=== PATIENT | male | born 1950 | race Caucasian/White ===

== ENCOUNTER 2020-09-07 16:42 | Outpatient (RCR) | payer MEDICARE, SELFPAY | END 2020-11-08 23:59 | LOC: IMMUN 16:42 | PROVIDERS: Visit Provider Family Medicine | DX: Z23 Encounter for immunization (principal) | CPT/HCPCS: 0001A; 0002A; 91300 ==

== ENCOUNTER 2023-01-25 11:04 | Emergency (ER) | payer MEDICARE, SELFPAY ==
[2023-01-25 11:09] VITALS: BP 154/99; PULSE 97; RESP 18; TEMP 35.6; O2SAT 92; BMI 28.5
--- NOTE | 2023-01-25 11:34 | EX.ED.DYSGE1 ---
HPI <JN Sagastume - Last Filed: 01/25/23 17:14> History of Present Illness Chief Complaint: Suicidal Narrative Narrative: Patient is a 72-year-old male with history of RA, CAD, history of CVA, history of depression who presents into the emergency department with complaints of increased exacerbation of depression as well as concern for suicidal ideation. Patient states over the last several weeks, he has been having difficulty performing daily activities. He states his head is in a complete fog. He states that he is so depressed he has never get out of bed. He does have multiple thoughts that he does not want to wake up. He states that he wants to work hard in the yard, and have a heart attack and right then. He has never tried to hurt himself. He does have history of depression, last time he was treated was 1 year ago with medication. He states he is having difficulty keeping a psychiatric provider. Patient states that he needs to have treatment because he is not doing well at home. PFSH <JN Sagastume - Last Filed: 01/25/23 17:14> PFSH Allergy/AdvReac Type Severity Reaction Status Date / Time No Known Allergies Allergy Verified 01/25/23 11:13 Social History Smoking Status: Current some day smoker tobacco type: cigarettes ROS <JN Sagastume - Last Filed: 01/25/23 17:14> ROS ED ROS Narrative Constitutional: Negative for fever, chills, weight loss. Positive generalized weakness Eyes: Negative for vision loss, vision change, double vision ENT: Negative for any sore throat, ear pain, congestion Cardiovascular: Negative for any chest pain, tightness, palpitations Respiratory: Negative for any cough, sputum production, hemoptysis, dyspnea, dyspnea on exertion, orthopnea Gastrointestinal: Negative for any abdominal pain, nausea, vomiting, diarrhea, constipation, blood in stool, blood in vomit : Negative for any urinary frequency, dysuria, retention, blood in urine Muscle skeletal: Negative for any muscle joint pain, stiffness, neck pain, back pain. Positive for myalgias, arthralgias. Neurological: Negative for any headache, syncope, numbness or tingling, dizziness Skin: Negative for any rashes, lumps, itching, abrasions, lacerations Psychiatric: Negative for any anxiety, stress, homicidal ideation. Positive for depression, suicidal ideation Hematologic: Negative for any easy bruising, excessive bruising, easy bleeding Allergies: Negative for any eczema, hives, rash EXAM <JN Sagastume - Last Filed: 01/25/23 17:14> Physical Exam Narrative Exam Narrative: Vital signs reviewed. Patient was assessed by crisis, they recommend the patient be transferred to a psychiatric facility. HEET: Head normocephalic atraumatic, TMs clear bilaterally. Posterior pharynx is clear, moist mucous membranes. Nares clear bilaterally. Neck: Supple with no lymphadenopathy or tenderness. No signs of meningismus, negative jolt sign. Cardiac: Regular rate and rhythm no murmurs gallops or rubs, equal peripheral pulses bilaterally. Respiratory: Lungs clear to auscultation bilaterally. No chest tenderness. Abdomen: Soft, nontender, nondistended. No abdominal bruit or pulsatile masses. No hepatosplenomegaly Extremities: No peripheral edema, no signs of gross trauma or deformity. Active full range of motion of all extremities. Neuro: Cranial nerves II through XII intact, no focal neurological deficits. Skin: Clean dry and intact with no rash, purpura, petechiae, vesicles or pustules. Backs/flank: No CVA tenderness, no midline spinal tenderness, no deformity. Psych: Patient does appear to be depressed. Patient has no obvious plan of suicidal ideation however does speak about dying. He states he does not like to have these thoughts. Const Vital Signs: 01/25/23 11:09 01/25/23 13:09 Temperature 96.1 F L Temperature Source Temporal Pulse Rate 97 64 Respiratory Rate 18 14 Blood Pressure 154/99 H 142/78 H Blood Pressure Mean 117 99 Pulse Ox 92 98 Oxygen Delivery Method Room Air Room Air Positive well nourished and well developed General Appearance ED: well developed <Dr. Timur Richmond MD - Last Filed: 01/25/23 17:26> Physical Exam Const Vital Signs: 01/25/23 11:09 01/25/23 13:09 Temperature 96.1 F L Temperature Source Temporal Pulse Rate 97 64 Respiratory Rate 18 14 Blood Pressure 154/99 H 142/78 H Blood Pressure Mean 117 99 Pulse Ox 92 98 Oxygen Delivery Method Room Air Room Air MDM <JN Sagastume - Last Filed: 01/25/23 17:14> MDM Lab Data Labs: Laboratory Results - last 24 hr 01/25/23 01/25/23 01/25/23 11:45 12:14 12:51 WBC 6.1 RBC 5.68 Hgb 17.2 H Hct 51.1 MCV 90.0 MCH 30.3 MCHC 33.7 RDW Std Deviation 40.7 RDW Coeff of Vinnie 12.4 Plt Count 151 MPV 8.7 Immature Gran % (Auto) 0.200 Neut % (Auto) 78.2 H Lymph % (Auto) 15.8 L [place] % (Auto) 4.1 Eos % (Auto) 1.2 Baso % (Auto) 0.5 Absolute Neuts (auto) 4.8 Absolute Lymphs (auto) 0.96 Nucleated RBC % 0 Sodium 139 Potassium 3.8 Chloride 106 Carbon Dioxide 27.0 Anion Gap 6 BUN 17 Creatinine 0.99 Estim Creat Clear Calc 80.61 Est GFR (MDRD) Af Amer 95 Est GFR (MDRD) Non-Af 79 BUN/Creatinine Ratio 17.2 Glucose 105 Calcium 9.5 Total Bilirubin 1.10 H AST 28 ALT 33 Alkaline Phosphatase 76 Total Protein 7.8 Albumin 4.1 Globulin 3.7 Albumin/Globulin Ratio 1.1 Lipase 36 Urine Color Yellow Urine Clarity Cloudy Urine pH 6.5 Ur Specific Shel[place] 1.020 Urine Protein 100 H Urine Glucose (UA) Normal Urine Ketones 50 H Urine Occult Blood 25 H Urine Nitrite Negative Urine Bilirubin Negative Urine Urobilinogen 1 H Ur Leukocyte Esterase 500 H Urine RBC 0 SEEN Urine WBC 5-10 SEEN Ur Squamous Epith Cells 0 SEEN Urine Bacteria 4+ Urine Mucus 0 SEEN Urine Opiates Screen NEGATIVE Urine Methadone Screen NEGATIVE Ur Barbiturates Screen NEGATIVE Ur Phencyclidine Scrn NEGATIVE Ur Amphetamines Screen NEGATIVE MDMA (Ecstasy) Screen NEGATIVE U Benzodiazepines Scrn NEGATIVE Urine Cocaine Screen NEGATIVE U Cannabinoids Screen NEGATIVE Ur Drug Screen Comment Ethyl Alcohol < 3.0 Treatment and Re-Evaluation :: Patient is in no obvious distress, vital signs are stable. Patient presents to the emergency department for concerns of suicidal ideation, depression, inability to perform daily activities. Patient has signs and symptoms of depression, patient states he does want to however he has no obvious plan. The patient will be medically cleared, CMP and lipase were completed secondary to his history of gallbladder issues. Patient will need to be transferred. Patient be medically cleared here. Patient be placed in a gown, sitter. Patient's urinalysis did show 4+ bacteria 500 leukocytes, 25 occult blood, however patient is having no urinary symptoms. This to be sent for culture. Patient remains safe, she was able to speak with social work. Patient's CBC was unremarkable, chemistries were unremarkable, urine drug screen was negative, patient does not intoxicated. Patient did speak with social work, patient is currently waiting for a place in a bed at a psychiatric facility. Patient is pink slipped secondary to the patient stating that he wanted to leave. Patient is pink slipped for complaints concern for suicidal ideation <Dr. Timur Richmond MD - Last Filed: 01/25/23 17:26> [facility] Lab Data Attestation: I reviewed the patient's lab results. Labs: Laboratory Results - last 24 hr 01/25/23 01/25/23 01/25/23 11:45 12:14 12:51 WBC 6.1 RBC 5.68 Hgb 17.2 H Hct 51.1 MCV 90.0 MCH 30.3 MCHC 33.7 RDW Std Deviation 40.7 RDW Coeff of Vinnie 12.4 Plt Count 151 MPV 8.7 Immature Gran % (Auto) 0.200 Neut % (Auto) 78.2 H Lymph % (Auto) 15.8 L [place] % (Auto) 4.1 Eos % (Auto) 1.2 Baso % (Auto) 0.5 Absolute Neuts (auto) 4.8 Absolute Lymphs (auto) 0.96 Nucleated RBC % 0 Sodium 139 Potassium 3.8 Chloride 106 Carbon Dioxide 27.0 Anion Gap 6 BUN 17 Creatinine 0.99 Estim Creat Clear Calc 80.61 Est GFR (MDRD) Af Amer 95 Est GFR (MDRD) Non-Af 79 BUN/Creatinine Ratio 17.2 Glucose 105 Calcium 9.5 Total Bilirubin 1.10 H AST 28 ALT 33 Alkaline Phosphatase 76 Total Protein 7.8 Albumin 4.1 Globulin 3.7 Albumin/Globulin Ratio 1.1 Lipase 36 Urine Color Yellow Urine Clarity Cloudy Urine pH 6.5 Ur Specific [place] 1.020 Urine Protein 100 H Urine Glucose (UA) Normal Urine Ketones 50 H Urine Occult Blood 25 H Urine Nitrite Negative Urine Bilirubin Negative Urine Urobilinogen 1 H Ur Leukocyte Esterase 500 H Urine RBC 0 SEEN Urine WBC 5-10 SEEN Ur Squamous Epith Cells 0 SEEN Urine Bacteria 4+ Urine Mucus 0 SEEN Urine Opiates Screen NEGATIVE Urine Methadone Screen NEGATIVE Ur Barbiturates Screen NEGATIVE Ur Phencyclidine Scrn NEGATIVE Ur Amphetamines Screen NEGATIVE MDMA (Ecstasy) Screen NEGATIVE U Benzodiazepines Scrn NEGATIVE Urine Cocaine Screen NEGATIVE U Cannabinoids Screen NEGATIVE Ur Drug Screen Comment Ethyl Alcohol < 3.0 Rhythm Strip Rhythm Strip: Sinus Rhythm Rate: 95 Ectopy: None EKG Initial EKG: Attestation: I personally reviewed and interpreted this EKG as follows: Interpretation: Sinus Rhythm and No Acute Injury Pattern Comments: leftward axis Prior EKG tracings: not available for review Prior: No Prior Treatment and Re-Evaluation Comments:: I have personally performed a face to face assessment of the patient and have reviewed the TIFFANIE Note. I performed a substantive portion of the visit including all aspects of the following. My martins findings include: History is radial patient depressed and having thoughts of suicide, Patient requiring inpatient care and seen here for medical clearance. He has been having biliary colic he states he has it every day especially after meals, and was scheduled next week for elective surgery which has been canceled. He is not in a lot of pain right now. Exam is keenly alert and oriented x3, cooperative and appropriate. Ambulatory. Abdomen soft mild tenderness right lower quadrant otherwise benign abdomen no guarding or rebound negative [place]. No jaundice. Medical Decison Making Labs are obtained he does not have a leukocytosis or elevated liver enzymes. His total bilirubin is 1.1 which is just barely out of the normal range there is no old for comparison but this does not indicate acute choledocholithiasis. Patient is medically cleared, clinically does not have acute cholecystitis, will refer to mental health. Other additions or changes: [None] Discharge Plan Triage Chief Complaint: Suicidal ED Midlevel Provider: Jonathan Cheney ED Provider: Timur Richmond Dx/Rx/DC Orders Clinical Impression: Depression with suicidal ideation, Biliary colic symptom Primary Care Provider: Care Physician,No Primary Referrals: NOT,DEFINED [Non-Staff] - Disposition Disposition: Psychiatric Hospital or Unit
--- NOTE | 2023-01-25 11:42 | NURSING ---
NO OLD EKGS
[2023-01-25 12:21] LABS: Absolute Lymphocyte Count 0.96 X10^3/uL (0.83-4.51); Absolute Neutrophil Count 4.8 X10^3/uL (2.0-7.7); Basophil# 0.03 X10^3/uL; Basophil% 0.5 % (0-1); Eosinophil# 0.07 X10^3/uL; Eosinophils% 1.2 % (0-5); Hematocrit 51.1 % (40-54); Hemoglobin 17.2 g/dL (13.0-16.5); Lymphocyte # 0.96 X10^3/ul (0.83-4.51); Lymphocyte % 15.8 % (19-41); Mean Corp Hgb Conc 33.7 g/dL (32-36); Mean Corpuscular Hgb 30.3 pg (27.0-32.0); Mean Platelet Vol. 8.7 fl (6.2-12.0); Monocyte# 0.25 X10^3/uL; Monocyte% 4.1 % (0-10); NRBC Flagged by Analyzer 0 % (0-5); Neutrophil # 4.75 X10^3/uL (2.7-7.7); Neutrophil % 78.2 % (47-70); Platelet Count 151 K/mm3 (150-450); RBC Distribution Width CV 12.4 % (11.6-14.6); RBC Distribution Width SD 40.7 fl (35.1-43.9); Red Blood Count 5.68 M/mm3 (4.6-6.2); White Blood Count 6.1 K/mm3 (4.4-11.0)
[2023-01-25 12:26] LABS: ALB/GLOB Ratio 1.1 RATIO (0.9-2.4); AST(SGOT) 28 U/L (15-37); Alanine Aminotransfer ALT/SGPT 33 U/L (16-61); Albumin, Serum 4.1 g/dL (3.2-5.0); Alkaline Phosphatase 76 U/L (45-117); Anion Gap 6 (5-15); BUN 17 mg/dL (7-18); BUN/Creat Ratio 17.2 RATIO (10-20); Calcium,Total 9.5 mg/dL (8.5-10.1); Chloride 106 mmol/L (98-107); Creatinine, Serum 0.99 mg/dL (0.70-1.30); EST Glomerular Filtration Rate 79 mL/min (>60); Est Glom Filt Rate - Afr Amer 95 mL/min (>60); Estimated Creatinine Clearance 80.61 ml/min; Globulin 3.7 g/dL (2.2-4.2); Glucose 105 mg/dL (74-106); Lipase 36 U/L (13-75); Potassium 3.8 mmol/L (3.5-5.1); Protein, Total 7.8 g/dL (6.4-8.2); Sodium Level 139 mmol/L (136-145)
--- NOTE | 2023-01-25 12:30 | CM.ED ---
Social Work SW received call from crisis. Pt assessed by crisis and psych hospitalization is recommended. Pt sent to ED for medical clearance and once received crisis will refer patient for [facility] hospitalization. Assessment received via fax and placed on patient's chart. Nona Gonzales MSW, POWER SUPPLY ENGINEER
[2023-01-25 12:33] LABS: Alcohol, Blood (Medical)-Serum < 3.0 mg/dL
[2023-01-25 13:03] LABS: Mucous, Urine 0 SEEN /hpf (<or=2+); Red Blood Cells-Urine 0 SEEN /hpf (0-5); Squamous Epithelial Cells - UA 0 SEEN /hpf (0-5)
[2023-01-25 13:09] VITALS: BP 142/78; PULSE 64; RESP 14; O2SAT 98
[2023-01-25 13:20] LABS: Amphetamine Urine VISTA NEGATIVE (<1000 ng/mL); Barbiturate Urine VISTA NEGATIVE (< 200 ng/mL); Benzodiazepine Urine VISTA NEGATIVE (< 200 ng/mL); Cocaine Urine VISTA NEGATIVE (< 300 ng/mL); Ecstacy Urine VISTA NEGATIVE (< 500 ng/mL); Methadone Urine VISTA NEGATIVE (< 300 ng/mL); PCP Urine VISTA NEGATIVE (< 25 ng/mL); THC Urine VISTA NEGATIVE (< 50 ng/mL); Vista UDS pH Range 6
[2023-01-25 13:24] LABS: Color, Urine Yellow (Yellow); Glucose, Dipstick Normal (Normal); Ketone-Dipstick 50 mg/dl (Negative); Leukocyte Esterase-Dipstick 500 /ul (Negative); Nitrite-Dipstick Negative (Negative); Occult Blood-Urine 25 /ul (Negative); Protein-Dipstick 100 mg/dl (Negative); Urine Bilirubin Dipstick Negative (Negative); Urine Clarity Cloudy (Clear); Urine Urobilinogen 1 mg/dl (Normal); Urine pH 6.5 (5.0 - 8.0)
[2023-01-25 13:25] LABS: Bacteria 4+ /hpf (None Seen); White Blood Cells 5-10 SEEN /hpf (0-5)
--- NOTE | 2023-01-25 14:14 | ED.RN ---
family at bedside stating she is taking pt home, that this is ridiculous, we not doing anything for him, she is very argumentative. pt is calm and just wants help.
--- NOTE | 2023-01-25 14:45 | CM.ED ---
Addendum entered by Nona Gonzales 01/25/23 18:21: Patient accepted to [facility] by Dr. Terry. Pt notified and sister returned to the room at that time. Sister notified and informed that transportation will be scheduled and transport time is currently unknown. Sister reports frustration with the process. SW provided support. SW notified Crisis that patient was accepted to [facility]. Nona Gonzales MSW, MIXER OPERATOR [employer] Original Note: Social Work SW introduced self and role to patient and sister, Elba. Patient's sister is unhappy and reports, We have been here for hours and no one has done anything. SW explained the process and reports patient has been referred to [facility] per her request for patient to be in [place]. SW reports labs were recently completed and they were necessary for referral. Pt is understanding and is not expressing concern. Sister is angry he has not been helped and wants to know why they don't give him meds. SW explained that the psychiatrist at the facility will review medications and prescribe as they deem fit. Sister reports, I am going to wait 10 minutes to see if he gets accepted. SW explained the process can take hours and the psychiatrist must review and determine whether to accept patient. Sister insists he better go to [place]. SW informed her that they are attempted placement in [place] at this time and hopefully he will be accepted but if not another facility will be needed. SW received sisters number and informed her she can call her when information is received. Pt's sister reports she will wait 10 minutes still. SW let patient know they will keep them updated on status. Medical clearance was sent to Crisis and crisis made referral to [facility] as they assessed the patient. Crisis to notify SW and provide updates. Nona Gonzales MSW, MIXER OPERATOR [employer]
[2023-01-25] MEDS: LORazepam 1 MG Tablet PO (15:52)
--- NOTE | 2023-01-25 17:59 | NURSING ---
CALLED [facility], ETA IS 3 TO 4 HRS
[2023-01-25 18:34] VITALS: BP 125/114; PULSE 94; RESP 16; O2SAT 96
--- NOTE | 2023-01-25 19:48 | ED.RN ---
ATTEMPTED TO CALL REPORT, ON HOLD FOR OVER 5 MINUTES. WAS REPORTED TO THIS NURSE BY PREVIOUS NURSE HAD ALSO TRIED TO CALL REPORT SEVERAL TIMES.
[2023-01-25 19:49] VITALS: BP 124/87; PULSE 69; RESP 16; RESP 18; O2SAT 99
== END 2023-01-25 21:10 ==
PROVIDERS: Nurse Practitioner; Emergency Provider Emergency Medicine; Visit Provider Emergency Medicine
DX: F32.A Depression, unspecified (principal); R45.851 Suicidal ideations; K80.50 Calculus of bile duct without cholangitis or cholecystitis without obstruction; F17.210 Nicotine dependence, cigarettes, uncomplicated; I25.10 Atherosclerotic heart disease of native coronary artery without angina pectoris; Z86.73 Personal history of transient ischemic attack (TIA), and cerebral infarction without residual deficits
CPT/HCPCS: 80053; 80307; 81001; 82077; 83690; 85025; 87077; 87086; 87088; 87186; 87811; 93005; 99284